=== PATIENT | female | born 1985 | race Caucasian/White ===

== ENCOUNTER 2019-04-11 18:24 | Emergency (ER) | payer MEDICAID ==
--- NOTE | 2019-04-11 18:39 | EDM.PDOC ---
ED HPI GENERAL MEDICAL PROBLEM - General Chief Complaint: Drug or Alcohol Abuse Stated Complaint: OD Time Seen by Provider: 04/11/19 18:29 Source of Information: Reports: Patient History Limitations: Reports: No Limitations - History of Present Illness INITIAL COMMENTS - FREE TEXT/NARRATIVE: This patient is a 33 year old female that presents to the ER via EMS [place]. Upon arrival, the patient is alert and oriented. EMS reports that phone call to 911 dispatched saying patient was unresponsive. EMS reports CPR was in progress by bystanders. EMS reports they found patient with good pulses. EMS reports patient lips were blue, she had periods of apnea breathing, and patient was not responsive. EMS reports that they arrived on scene at 5:45pm. EMS reports blood sugar was 214. Narcan given by EMS at 1800, with patient then becoming responsive. They report the patient was being ambu bag, until 1804. Then at 1808 when then patient breathing normal and completely alert, regained consciousness. The patient reports what she remembers is that today she felt fine, except having her chronic back pain. She reports she took 2 hydrocodones and 1 xanax earlier today. She reports she was across street at [employer] house sitting on the couch talking to her two friends about 5:30pm. She reports then the next thing she remembers is being in the back of an ambulance. The patient arrives to the ER fully alert and oriented, other than recalling recent events. Patient reports she is 6 weeks confirmed by US in [place] recently, her LMP was back in February, she thinks. Onset: Today Onset Date: 04/11/19 Duration: Other (unknown time. ) Severity: Moderate Improves with: Reports: None Worsens with: Reports: None Associated Symptoms: Reports: Nausea/Vomiting. Denies: Chest Pain, Cough, cough w sputum, Diaphoresis, Fever/Chills, Headaches, Loss of Appetite, Malaise , Seizure, Shortness of Breath, Weakness - Related Data Allergies Allergy/AdvReac Type Severity Reaction Status Date / Time Penicillins Allergy Hives Verified 04/11/19 18:37 Home Meds: Home Meds Cyclobenzaprine [Flexeril] 10 mg PO BID 01/08/14 [History] Zolpidem [Ambien] 10 mg PO BEDTIME PRN 01/08/14 [History] ALPRAZolam [Xanax] 1 mg PO QID PRN 04/11/19 [History] Gabapentin [Neurontin] 800 mg PO TID 04/11/19 [History] Hydrocodone/Acetaminophen [[place] 5-325 Tablet] 1 each PO Q4H PRN 04/11/19 [ History] Past Medical History - Past Health History Medical/Surgical History: Denies Medical/Surgical History Musculoskeletal History: Reports: Back Pain, Chronic Psychiatric History: Reports: Other (See Below) - Past Surgical History Female Surgical History: Reports: Section Social & Family History - Family History Family Medical History: Noncontributory - Tobacco Use Smoking Status *Q: Never Smoker Second Hand Smoke Exposure: No - Caffeine Use Caffeine Use: Reports: None - Recreational Drug Use Recreational Drug Use: Yes - Living Situation & Occupation Living situation: Reports: , Alone Occupation: Employed ([employer]) [facility] - Review of Systems Review Of Systems: See Below Constitutional: Reports: Diaphoresis HEENT: Reports: No Symptoms Respiratory: Reports: No Symptoms Cardiovascular: Reports: No Symptoms Endocrine: Reports: No Symptoms GI/Abdominal: Reports: No Symptoms : Reports: No Symptoms Musculoskeletal: Reports: No Symptoms Skin: Reports: No Symptoms Neurological: Reports: No Symptoms Psychiatric: Reports: No Symptoms Hematologic/Lymphatic: Reports: No Symptoms Immunologic: Reports: No Symptoms - Physical Exam Exam: See Below Exam Limited By: Other (unable to recall what happened) General Appearance: Alert, WD/WN, No Apparent Distress, Obese Eye Exam: Bilateral Eye: EOMI, Normal Inspection, PERRL Ears: Normal External Exam, Normal Canal, Hearing Grossly Normal, Normal TMs Nose: Normal Inspection, Normal Mucosa, No Blood Throat/Mouth: Normal Inspection, Normal Lips, Normal Teeth, Normal Gums, Normal Oropharynx, Normal Voice, No Airway Compromise Head Exam: Atraumatic, Normocephalic Neck: Normal Inspection, Supple, Non-Tender, Full Range of Motion Respiratory/Chest: No Respiratory Distress, Lungs Clear, Normal Breath Sounds, No Accessory Muscle Use, Chest Non-Tender Cardiovascular: Normal Peripheral Pulses, Regular Rate, Rhythm, No Edema, No Gallop, No JVD, No Murmur, No Rub GI/Abdominal: Normal Bowel Sounds, Soft, Non-Tender, No Organomegaly, No Distention, No Abnormal Bruit, No Mass, Pelvis Stable (Female) Exam: Deferred Rectal (Female) Exam: Deferred Neuro Exam (Abbreviated): Alert, Oriented, CN II-XII Intact, Normal Cognition, Normal Gait, No Motor/Sensory Deficits, Memory Loss Recent Events Back Exam: Normal Inspection, Full Range of Motion Extremities: Normal Inspection, Normal Range of Motion, Non-Tender, No Pedal Edema, Normal Capillary Refill Psychiatric: Normal Affect, Normal Mood Skin Exam: Warm, Intact, Normal Color, No Rash, Diaphoretic EKG INTERPRETATION EKG Date: 04/11/19 Time: 18:51 Rhythm: Other (Sinus Tach) Rate (Beats/Min): 102 P-Wave: Present QRS: Normal ST-T: Normal Comparison: NA - No Prior EKG Course - Vital Signs Last Recorded V/S: Last Vital Signs Temp 96.5 F 04/11/19 18:24 Pulse 113 H 04/11/19 18:24 Resp 18 04/11/19 18:24 BP 99/57 L 04/11/19 18:24 Pulse Ox 98 04/11/19 18:24 - Orders/Labs/Meds Labs: Laboratory Tests 04/11/19 04/11/19 04/11/19 Range/Units 18:40 18:40 18:40 WBC 9.2 (5.0-10.0) 10^3/uL RBC 4.44 (4.00-5.50) 10^6/uL Hgb 12.7 (12.0-16.0) g/dL Hct 38.2 (37.0-47.0) % MCV 86.0 (82.0-94.0) fL MCH 28.6 (27.0-32.0) pg MCHC 33.2 (33.0-38.0) g/dL RDW Coeff of Vahe 13.0 (11.0-15.0) % Plt Count 272 (150-400) 10^3/uL Neut % (Auto) 72.8 (35-85) % Lymph % (Auto) 19.9 (10-55) % Garrard % (Auto) 5.4 (0-16) % Eos % (Auto) 1.7 (0-5) % Baso % (Auto) 0.2 (0-3) % Neut # (Auto) 6.72 (1.80-7.00) 10^3/uL Lymph # (Auto) 1.84 (1.00-4.80) 10^3/uL Garrard # (Auto) 0.50 (0.00-0.80) 10^3/uL Eos # (Auto) 0.16 (0.00-0.45) 10^3/uL Baso # (Auto) 0.02 10^3/uL Sodium (136-145) mEq/L Potassium (3.5-5.0) mEq/L Chloride (98-106) mEq/L Carbon Dioxide (21-32) mmol/L BUN (7-18) mg/dL Creatinine (0.6-1.0) mg/dL Est Cr Clr Drug Dosing mL/min Estimated GFR (MDRD) (>=60) mL/min Glucose (75-99) mg/dL Calcium (8.4-10.1) mg/dL Total Bilirubin (0.0-1.0) mg/dL AST (15-37) U/L ALT (12-78) U/L Alkaline Phosphatase (46-116) U/L Creatine Kinase (21-215) U/L Troponin I (0.00-0.06) ng/mL Total Protein (6.4-8.2) g/dL Albumin (3.4-5.0) g/dL Urine Color Yellow (YELLOW) Urine Appearance Slightly cloudy (CLEAR) Urine pH 5.5 (4.5-8.0) Ur Specific [place] 1.015 (1.003-1.020) Urine Protein Trace H (NEGATIVE) mg/dL Urine Glucose (UA) 100 H (NEGATIVE) mg/dL Urine Ketones Negative (NEGATIVE) mg/dL Urine Occult Blood Negative (NEGATIVE) Urine Nitrite Negative (NEGATIVE) Urine Bilirubin Negative (NEGATIVE) Urine Urobilinogen 0.2 (0.2-1.0) EU/dL Ur Leukocyte Esterase Negative (NEGATIVE) Urine RBC Not seen (0-5) /HPF Urine WBC 0-5 (0-5) /HPF Ur Squamous Epith Cells Few H (NOT SEEN) /HPF Urine Bacteria Few H (NOT SEEN) /HPF Urine Mucus Occasional H (NOT SEEN) /HPF Urine HCG, Qual Positive Urine Opiates Screen (NEGATIVE) Ur Oxycodone Screen (NEGATIVE) Urine Methadone Screen (NEGATIVE) Ur Barbiturates Screen (NEGATIVE) U Tricyclic Antidepress (NEGATIVE) Ur Phencyclidine Scrn (NEGATIVE) Ur Amphetamine Screen (NEGATIVE) U Methamphetamines Scrn (NEGATIVE) Urine MDMA Screen (NEGATIVE) U Benzodiazepines Scrn (NEGATIVE) Urine Cocaine Screen (NEGATIVE) U Marijuana (THC) Screen (NEGATIVE) Ethyl Alcohol (0-3) mg/dL 04/11/19 04/11/19 Range/Units 18:40 18:40 WBC (5.0-10.0) 10^3/uL RBC (4.00-5.50) 10^6/uL Hgb (12.0-16.0) g/dL Hct (37.0-47.0) % MCV (82.0-94.0) fL MCH (27.0-32.0) pg MCHC (33.0-38.0) g/dL RDW Coeff of Vahe (11.0-15.0) % Plt Count (150-400) 10^3/uL Neut % (Auto) (35-85) % Lymph % (Auto) (10-55) % [place]ard % (Auto) (0-16) % Eos % (Auto) (0-5) % Baso % (Auto) (0-3) % Neut # (Auto) (1.80-7.00) 10^3/uL Lymph # (Auto) (1.00-4.80) 10^3/uL [place]ard # (Auto) (0.00-0.80) 10^3/uL Eos # (Auto) (0.00-0.45) 10^3/uL Baso # (Auto) 10^3/uL Sodium 138 (136-145) mEq/L Potassium 4.1 (3.5-5.0) mEq/L Chloride 103 (98-106) mEq/L Carbon Dioxide 25 (21-32) mmol/L BUN 10 (7-18) mg/dL Creatinine 0.8 (0.6-1.0) mg/dL Est Cr Clr Drug Dosing 92.76 mL/min Estimated GFR (MDRD) > 60 (>=60) mL/min Glucose 202 H (75-99) mg/dL Calcium 8.5 (8.4-10.1) mg/dL Total Bilirubin 0.2 (0.0-1.0) mg/dL AST 17 (15-37) U/L ALT 19 (12-78) U/L Alkaline Phosphatase 74 (46-116) U/L Creatine Kinase 53 (21-215) U/L Troponin I < 0.017 (0.00-0.06) ng/mL Total Protein 7.3 (6.4-8.2) g/dL Albumin 3.7 (3.4-5.0) g/dL Urine Color (YELLOW) Urine Appearance (CLEAR) Urine pH (4.5-8.0) Ur Specific [place] (1.003-1.020) Urine Protein (NEGATIVE) mg/dL Urine Glucose (UA) (NEGATIVE) mg/dL Urine Ketones (NEGATIVE) mg/dL Urine Occult Blood (NEGATIVE) Urine Nitrite (NEGATIVE) Urine Bilirubin (NEGATIVE) Urine Urobilinogen (0.2-1.0) EU/dL Ur Leukocyte Esterase (NEGATIVE) Urine RBC (0-5) /HPF Urine WBC (0-5) /HPF Ur Squamous Epith Cells (NOT SEEN) /HPF Urine Bacteria (NOT SEEN) /HPF Urine Mucus (NOT SEEN) /HPF Urine HCG, Qual Urine Opiates Screen Negative (NEGATIVE) Ur Oxycodone Screen Positive H (NEGATIVE) Urine Methadone Screen Negative (NEGATIVE) Ur Barbiturates Screen Negative (NEGATIVE) U Tricyclic Antidepress Positive H (NEGATIVE) Ur Phencyclidine Scrn Negative (NEGATIVE) Ur Amphetamine Screen Negative (NEGATIVE) U Methamphetamines Scrn Negative (NEGATIVE) Urine MDMA Screen Negative (NEGATIVE) U Benzodiazepines Scrn Positive H (NEGATIVE) Urine Cocaine Screen Negative (NEGATIVE) U Marijuana (THC) Screen Negative (NEGATIVE) Ethyl Alcohol 3 (0-3) mg/dL - Re-Assessments/Exams Free Text/Narrative Re-Assessment/Exam: 04/11/19 20:53 I did not do a head ct due to patient being fully alert and oriented on arrival without any neurological findings on exam. Also, did not do a CXR due to patient not having Chest pain or dyspnea. The patient is also , so avoided radiation exposures. I then called and spoke to [facility] physician about the patient after obtaining all results. He said could discharge the patient home, sounds like OD with narcan that reversed patient condition. Patient was not post ictal on arrival or in ambulance after narcan was given per EMS report. Patient was not incontinent of urine or stool. The patient during ER stay has had no complaints. She reports that she may not have been diaphoretic on arrival, because her friends said they actually splashed a big cup of water on her to try and wake her. The patient is being discharged home. She reports she hermann followup with her PCP. She told me that her drug screen could be positive for oxycodone vs opiates because she thinks maybe she was switched to oxycodone. She reports that she normally takes 1, sometimes 2 of the hydrocodones, but maybe she actually took 2 of the oxycodones instead and that was more powerful and made her have that episode. She reports she def did not intentionally OD herself. Departure - Departure Time of Disposition: 21:11 Disposition: Home, Self-Care 01 Condition: Good Clinical Impression: Overdose Qualifiers: Encounter type: initial encounter Injury intent: accidental or unintentional Qualified Code(s): T50.901A - Poisoning by unspecified drugs, medicaments and biological substances, accidental (unintentional), initial encounter - Discharge Information *PRESCRIPTION DRUG MONITORING PROGRAM REVIEWED*: No *COPY OF PRESCRIPTION DRUG MONITORING REPORT IN PATIENT SEDRICK: No Instructions: Drug Overdose Referrals: Nick Carrillo MD [Primary Care Provider] - Forms: ED Department Discharge Additional Instructions: Followup with your primary care provider Return to the ER for worsening of condition or any emergent concerns Take meds as prescribed - Assessment/Plan Plan: PLEASE SEE RN NOTE FOR PFSH.
[2019-04-11 19:00] LABS: CHLORIDE,CL 103 mEq/L (98-106); SODIUM,NA 138 mEq/L (136-145)
== END 2019-04-11 21:30 | disposition home or self-care (01) ==
LOC: CC.ED 18:24
DX: O9A.211 Injury, poisoning and certain other consequences of external causes complicating pregnancy, first trimester (principal); T40.2X1A Poisoning by other opioids, accidental (unintentional), initial encounter; T42.4X1A Poisoning by benzodiazepines, accidental (unintentional), initial encounter; Z88.0 Allergy status to penicillin; Z3A.01 Less than 8 weeks gestation of pregnancy; Y92.009 Unspecified place in unspecified non-institutional (private) residence as the place of occurrence of the external cause
CPT/HCPCS: 36415; 80053; 80305-QW; 81001; 81025; 82550; 84484; 85025; 93005; 99284-25; G0480

== ENCOUNTER 2020-05-21 15:17 | Emergency (ER) | payer MEDICAID ==
--- NOTE | 2020-05-21 15:51 | EDM.PDOC ---
ED HPI GENERAL MEDICAL PROBLEM - General Chief Complaint: Upper Extremity Injury/Pain Stated Complaint: "I think I broke my hand" Time Seen by Provider: 05/21/20 15:23 Source of Information: Reports: Patient History Limitations: Reports: No Limitations - History of Present Illness INITIAL COMMENTS - FREE TEXT/NARRATIVE: This patient is a 34 year old female that presents to the ER. Patient reports that she was walking down a step last night and tripped and landed on her left hand. Patient then she landed on it with her body. Patient denies hitting head or any other injuries other than left hand pain, swelling, bruising. Onset Date: 05/20/20 Location: Reports: Upper Extremity, Left Quality: Reports: Ache Severity: Mild Improves with: Reports: Immobilization Worsens with: Reports: Movement Associated Symptoms: Reports: No Other Symptoms Left Hand Pain Score (Numeric/FACES): 7 - Related Data Allergies Allergy/AdvReac Type Severity Reaction Status Date / Time Penicillins Allergy Hives Verified 05/21/20 15:24 Home Meds: Home Meds Cyclobenzaprine [Flexeril] 10 mg PO BID 01/08/14 [History] Zolpidem [Ambien] 10 mg PO BEDTIME PRN 01/08/14 [History] ALPRAZolam [Xanax] 1 mg PO QID PRN 04/11/19 [History] Gabapentin [Neurontin] 800 mg PO TID 04/11/19 [History] Hydrocodone/Acetaminophen [[place] 5-325 Tablet] 1 each PO Q4H PRN 04/11/19 [History] Mirtazapine 30 mg PO BEDTIME 05/21/20 [History] Past Medical History - Past Health History Medical/Surgical History: Denies Medical/Surgical History Musculoskeletal History: Reports: Back Pain, Chronic Psychiatric History: Reports: Other (See Below) - Past Surgical History GI Surgical History: Reports: Hernia Repair/Other Female Surgical History: Reports: Section Social & Family History - Family History Family Medical History: No Pertinent Family History - Tobacco Use Tobacco Use Status *Q: Current Every Day Tobacco User Years of Tobacco use: 10 Packs/Tins Daily: 0.5 - Caffeine Use Caffeine Use: Reports: Coffee, Soda - Recreational Drug Use Recreational Drug Use: No - Living Situation & Occupation Living situation: Reports: , Alone Occupation: Employed ([employer]) Review of Systems - Review of Systems Review Of Systems: See Below Constitutional: Reports: No Symptoms Eyes: Reports: No Symptoms Ears: Reports: No Symptoms Nose: Reports: No Symptoms Mouth/Throat: Reports: No Symptoms Respiratory: Reports: No Symptoms Cardiovascular: Reports: No Symptoms GI/Abdominal: Reports: No Symptoms Genitourinary: Reports: No Symptoms Musculoskeletal: Reports: Hand Pain (left hand pain) Skin: Reports: Bruising (left hand) Neurological: Reports: No Symptoms Psychiatric: Reports: No Symptoms ED EXAM, GENERAL - Physical Exam Exam: See Below Exam Limited By: No Limitations General Appearance: Alert, WD/WN, No Apparent Distress Respiratory/Chest: No Respiratory Distress, Lungs Clear, Normal Breath Sounds, No Accessory Muscle Use Cardiovascular: Normal Peripheral Pulses, Regular Rate, Rhythm Peripheral Pulses: 2+: Radial (L), Radial (R) Extremities: Other (Left hand palm side at 4th, 5th metacarpal pain, tenderness, swelling, eccyhmosis. ROM intact, but with pain. Pulses +2, cap refill < 2 sec. Sensory/motor intact. Neurovascular intact. ) Neurological: Alert, Oriented Psychiatric: Normal Affect, Normal Mood Skin Exam: Warm, Dry, Intact, No Rash, Ecchymosis (left hand) ED TRAUMA EXTREMITY PROCEDURES - Splinting Left Upper Extremity Splint Site: left hand Pre-Procedure NV Status: Normal Post-Procedure NV Status: Normal Splint Material: Fiberglass Splint Design: Boxer Splint Applied & Form Fitted By: Provider Provider Post-Splint Application NV Check: NV Status Normal, Good Position Complications: No Course - Vital Signs Last Recorded V/S: Last Vital Signs Temp 97.9 F 05/21/20 15:22 Pulse 94 05/21/20 15:22 Resp 16 05/21/20 15:22 BP 132/92 H 05/21/20 15:22 Pulse Ox 100 05/21/20 15:22 - Orders/Labs/Meds Orders: Active Orders 24 hr Category Date Time Status Hand Comp Min 3V Lt [CR] Stat Exams 05/21/20 15:27 Taken - Radiology Interpretation Free Text/Narrative:: left hand xray: no fracture, no dislocation. no fb. Departure - Departure Time of Disposition: 15:48 Disposition: Home, Self-Care 01 Condition: Good Clinical Impression: Contusion of left hand Qualifiers: Encounter type: initial encounter Qualified Code(s): S60.222A - Contusion of left hand, initial encounter Sprain of left hand Qualifiers: Encounter type: initial encounter Qualified Code(s): S63.92XA - Sprain of unspecified part of left wrist and hand, initial encounter - Discharge Information *PRESCRIPTION DRUG MONITORING PROGRAM REVIEWED*: Not Applicable *COPY OF PRESCRIPTION DRUG MONITORING REPORT IN PATIENT SEDRICK: Not Applicable Instructions: Hand Contusion, [id number], How to Use Cold Therapy Forms: ED Department Discharge Additional Instructions: Followup with primary care provider for evaluation of hand and possible repeat xray in -10 if still having pain Return to the ER for worsening of condition or any emergent concerns Rest Ice Elevate Arm sling as needed Motrin for pain and swelling If hand becomes painful, numb, tingling; raise arm above heart. If continues, remove cast. Sepsis Event Note (ED) - Evaluation Sepsis Screening Result: No Definite Risk - Focused Exam Vital Signs: Vital Signs Temp Pulse Resp BP Pulse Ox 05/21/20 15:22 97.9 F 94 16 132/92 H 100 - My Orders Last 24 Hours: My Active Orders 05/21/20 15:27 Hand Comp Min 3V Lt [CR] Stat - Assessment/Plan Last 24 Hours: My Active Orders 05/21/20 15:27 Hand Comp Min 3V Lt [CR] Stat Plan: PLEASE SEE RN NOTE FOR PFSH
== END 2020-05-21 15:54 | disposition home or self-care (01) ==
LOC: CC.ED 15:17
DX: S63.92XA Sprain of unspecified part of left wrist and hand, initial encounter (principal); F17.210 Nicotine dependence, cigarettes, uncomplicated; Z88.0 Allergy status to penicillin; W10.9XXA Fall (on) (from) unspecified stairs and steps, initial encounter; Y93.01 Activity, walking, marching and hiking
CPT/HCPCS: 29125; 73130-LT; 99283-25

== ENCOUNTER 2020-09-30 00:39 | Emergency (ER) | payer MEDICAID ==
--- NOTE | 2020-09-30 01:15 | EDM.PDOC ---
ED HPI GENERAL MEDICAL PROBLEM - General Chief Complaint: Lower Extremity Injury/Pain Stated Complaint: ankle injury Time Seen by Provider: 09/30/20 01:06 - History of Present Illness INITIAL COMMENTS - FREE TEXT/NARRATIVE: Ирина is a yo female who presents to the ED with c/o left lateral ankle pain. She reports she jumped off her dryer and landed wrong on her ankle. Reports instant pain. Does have mild swelling to lateral aspect of left ankle. Did take some Aleve prior to coming in. Reports pain extends up the back of her leg. Denies any other injury. 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 Left Ankle Pain Score (Numeric/FACES): 8 - Related Data Allergies Allergy/AdvReac Type Severity Reaction Status Date / Time Penicillins Allergy Hives Verified 09/30/20 00:46 Home Meds: Home Meds Cyclobenzaprine [Flexeril] 10 mg PO TID PRN 01/08/14 [History] Zolpidem [Ambien] 10 mg PO BEDTIME PRN 01/08/14 [History] ALPRAZolam [Xanax] 1 mg PO QID PRN 04/11/19 [History] Gabapentin [Neurontin] 800 mg PO TID 04/11/19 [History] Hydrocodone/Acetaminophen [[place] 5-325 Tablet] 1 each PO Q4H PRN 04/11/19 [History] Mirtazapine 30 mg PO BEDTIME 05/21/20 [History] Past Medical History - Past Health History Medical/Surgical History: Denies Medical/Surgical History Musculoskeletal History: Reports: Back Pain, Chronic, Osteoarthritis Neurological History: Reports: Neuropathy, Peripheral Psychiatric History: Reports: Anxiety, Depression - Past Surgical History GI Surgical History: Reports: Hernia Repair/Other Female Surgical History: Reports: Section, Tubal Ligation Social & Family History - Family History Family Medical History: No Pertinent Family History - Tobacco Use Tobacco Use Status *Q: Current Every Day Tobacco User Years of Tobacco use: 23 Packs/Tins Daily: 0.5 - Caffeine Use Caffeine Use: Reports: Coffee, Soda - Living Situation & Occupation Living situation: Reports: , Alone Occupation: Employed ([employer]) Review of Systems - Review of Systems Review Of Systems: Comprehensive ROS is negative, except as noted in HPI. ED EXAM, GENERAL - Physical Exam Exam: See Below Exam Limited By: No Limitations General Appearance: Alert, WD/WN, No Apparent Distress Peripheral Pulses: 2+: Posterior Tibial (L), Dorsalis Pedis (L) Extremities: Normal Range of Motion, Normal Capillary Refill, Other (mild swelling noted to latearl aspect of left ankle, small area of bruising, tender to touch lateral aspect of left ankle ). No: Increased Warmth, Redness Psychiatric: Anxious Course - Vital Signs Last Recorded V/S: Last Vital Signs Temp 98.9 F 09/30/20 00:40 Pulse 102 H 09/30/20 00:40 Resp 16 09/30/20 00:40 BP 150/82 H 09/30/20 00:40 Pulse Ox 98 09/30/20 00:40 - Orders/Labs/Meds Orders: Active Orders 24 hr Category Date Time Status Ankle Min 3V Lt [CR] Stat Exams 09/30/20 00:45 Taken Departure - Departure Time of Disposition: 01:12 Disposition: Home, Self-Care 01 Condition: Good Clinical Impression: Left ankle sprain Qualifiers: Encounter type: initial encounter Involved ligament of ankle: unspecified ligament Qualified Code(s): S93.402A - Sprain of unspecified ligament of left ankle, initial encounter - Discharge Information *PRESCRIPTION DRUG MONITORING PROGRAM REVIEWED*: Not Applicable *COPY OF PRESCRIPTION DRUG MONITORING REPORT IN PATIENT SEDRICK: Not Applicable Referrals: PCP,None [Primary Care Provider] - Forms: ED Department Discharge Additional Instructions: - RICE therapies until pain improves (rest, ice, elevate and compression) - Aleve or ibuprofen as needed for pain/swelling - Weight bearing as tolerated - May use Cam boot as needed for comfort - Follow up for recheck if symptoms worsen or do not improve - Return to ED for emergent needs Sepsis Event Note (ED) - Evaluation Sepsis Screening Result: No Definite Risk - Focused Exam Vital Signs: Vital Signs Temp Pulse Resp BP Pulse Ox 09/30/20 00:40 98.9 F 102 H 16 150/82 H 98 - Problem List & Annotations (1) Left ankle sprain SNOMED Code(s): 65301422, [id number] Code(s): S93.402A - SPRAIN OF UNSPECIFIED LIGAMENT OF LEFT ANKLE, INIT ENCNTR Status: Acute Qualifiers: Encounter type: initial encounter Involved ligament of ankle: unspecified ligament Qualified Code(s): S93.402A - Sprain of unspecified ligament of left ankle, initial encounter - My Orders Last 24 Hours: My Active Orders 09/30/20 00:45 Ankle Min 3V Lt [CR] Stat - Assessment/Plan Last 24 Hours: My Active Orders 09/30/20 00:45 Ankle Min 3V Lt [CR] Stat Assessment:: Left ankle sprain Plan: Xray negative per my review. Awaiting final radiology report. Recommend RICE therapies. Tylenol or ibuprofen as needed. Follow up if symptoms worsen or do not improve.
== END 2020-09-30 01:20 | disposition home or self-care (01) ==
LOC: CC.ED 00:39
DX: S93.402A Sprain of unspecified ligament of left ankle, initial encounter (principal); Z72.0 Tobacco use; Z88.0 Allergy status to penicillin; X50.1XXA Overexertion from prolonged static or awkward postures, initial encounter; Y93.39 Activity, other involving climbing, rappelling and jumping off
CPT/HCPCS: 73610-LT; 99283-25

== ENCOUNTER 2021-02-27 20:21 | Emergency (ER) | payer MEDICAID ==
--- NOTE | 2021-02-27 20:48 | EDM.PDOC ---
ED HPI GENERAL MEDICAL PROBLEM - General Chief Complaint: General Stated Complaint: Arm Hematoma Time Seen by Provider: 02/27/21 20:30 Source of Information: Reports: Patient History Limitations: Reports: No Limitations - History of Present Illness INITIAL COMMENTS - FREE TEXT/NARRATIVE: Ирина is a 35 year old female who presents to ER with complaints of a concerning bruise on her right arm. States her arm feels numb if she holds it up and is relieves if she applies pressure to her right axilla. patient notes she does bruise easily but has no recollection on how she obtained the one on her arm. Noted it to appear like a welt on the top and bruised elsewhere. States has tried hard to get herself off her medications as was on hydrocodone, gabapentin, mirtazapine, flexeril and xanax. Does admit that she lost her Xanax at home somewhere and does feel very anxious tonight with all "these weird things going on". Denies shortness of breath, edema in her legs, or chest discomfort. Admits to occasional nose bleeds. No blood in her stools or diarrhea. Onset: Gradual Duration: Day(s): Location: Reports: Upper Extremity, Right Quality: Reports: Ache, Throbbing Severity: Mild Improves with: Reports: Rest Worsens with: Reports: Movement Associated Symptoms: Denies: Confusion, Chest Pain, Cough, Fever/Chills, Loss of Appetite, Nausea/Vomiting, Shortness of Breath - Related Data Allergies Allergy/AdvReac Type Severity Reaction Status Date / Time Penicillins Allergy Hives Verified 02/27/21 20:27 Home Meds: Home Meds Cyclobenzaprine [Flexeril] 10 mg PO TID PRN 01/08/14 [History] Zolpidem [Ambien] 10 mg PO BEDTIME PRN 01/08/14 [History] ALPRAZolam [Xanax] 1 mg PO QID PRN 04/11/19 [History] Gabapentin [Neurontin] 800 mg PO TID 04/11/19 [History] Mirtazapine 30 mg PO BEDTIME 05/21/20 [History] Past Medical History - Past Health History Medical/Surgical History: Denies Medical/Surgical History Musculoskeletal History: Reports: Back Pain, Chronic, Osteoarthritis Neurological History: Reports: Neuropathy, Peripheral Psychiatric History: Reports: Anxiety, Depression - Past Surgical History GI Surgical History: Reports: Hernia Repair/Other Female Surgical History: Reports: Section, Tubal Ligation Social & Family History - Family History Family Medical History: No Pertinent Family History - Tobacco Use Tobacco Use Status *Q: Never Tobacco User Second Hand Smoke Exposure: No - Caffeine Use Caffeine Use: Reports: None - Recreational Drug Use Recreational Drug Use: No - Living Situation & Occupation Living situation: Reports: , Alone Occupation: Employed ([employer]) ED ROS GENERAL - Review of Systems Review Of Systems: See Below Constitutional: Denies: Fever, Chills, Malaise, Weakness, Fatigue HEENT: Reports: Nosebleed. Denies: Ear Pain, Sinus Problem, Throat Pain, Vertigo Respiratory: Denies: Shortness of Breath, Cough Cardiovascular: Denies: Chest Pain, Edema, Lightheadedness Endocrine: Denies: Fatigue GI/Abdominal: Denies: Abdominal Pain, Black Stool, Bloody Stool, Nausea, Vomiting : Reports: No Symptoms Musculoskeletal: Reports: Arm Pain. Denies: Neck Pain, Shoulder Pain Skin: Reports: Bruising Neurological: Reports: No Symptoms ED EXAM, GENERAL - Physical Exam Exam: See Below Exam Limited By: No Limitations General Appearance: Alert, WD/WN, No Apparent Distress Ears: Normal External Exam, Normal TMs Nose: Normal Inspection, Normal Mucosa, No Blood Throat/Mouth: Normal Inspection, Normal Oropharynx Head: Normocephalic Neck: Normal Inspection, Supple, Non-Tender Respiratory/Chest: No Respiratory Distress, Lungs Clear, Normal Breath Sounds Cardiovascular: Tachycardia GI/Abdominal: Normal Bowel Sounds, Soft, Non-Tender Back Exam: Normal Inspection, Full Range of Motion Extremities: Normal Inspection, Other (strengths are equal) Neurological: Alert, Oriented. No: No Motor/Sensory Deficits Skin Exam: Warm, Dry, Other (has large hematoma to right upper arm. Multiple bruises on her arms and legs. ) Course - Vital Signs Last Recorded V/S: Last Vital Signs Temp 96.7 F L 02/27/21 20:33 Pulse 111 H 02/27/21 20:33 Resp 18 02/27/21 20:33 BP 97/62 02/27/21 20:33 Pulse Ox 98 02/27/21 20:33 - Orders/Labs/Meds Labs: Laboratory Tests 02/27/21 02/27/21 Range/Units 20:49 20:49 WBC 11.1 H (4.0-11.0) 10^3/uL RBC 4.65 (4.00-5.50) x10^6/uL Hgb 13.2 (12.0-16.0) g/dL Hct 40.9 (37.0-47.0) % MCV 88.0 (83.0-97.0) fL MCH 28.4 (27.0-32.0) pg MCHC 32.3 (32.0-36.0) g/dL RDW Coeff of [place] 14.4 (11.0-15.0) % Plt Count 369 (150-400) 10^3/uL Immature Gran % (Auto) 0.3 (0.0-4.9) % Neut % (Auto) 65.8 (41-71) % Lymph % (Auto) 25.0 (24-44) % [place] % (Auto) 6.4 (0-10) % Eos % (Auto) 2.0 (0-6) % Baso % (Auto) 0.5 (0-1) % Neut # (Auto) 7.32 (1.80-8.00) x10^3/uL Lymph # (Auto) 2.78 (0.60-5.00) 10^3/uL [place] # (Auto) 0.71 (0.00-1.50) 10^3/uL Eos # (Auto) 0.22 (0.00-1.50) 10^3/uL Baso # (Auto) 0.06 (0.00-0.50) 10^3/uL Immature Gran # (Auto) 0.03 (0.00-0.49) 10^3/uL Sodium 144 (136-145) mEq/L Potassium 3.8 (3.5-5.0) mEq/L Chloride 104 (98-106) mEq/L Carbon Dioxide 28 (21-32) mmol/L BUN 16 D (7-18) mg/dL Creatinine 0.9 (0.6-1.0) mg/dL Est Cr Clr Drug Dosing 80.90 mL/min Estimated GFR (MDRD) > 60 (>=60) mL/min Glucose 117 H D (75-99) mg/dL Calcium 9.0 (8.4-10.1) mg/dL - Re-Assessments/Exams Free Text/Narrative Re-Assessment/Exam: 02/27/21 21:05 Patient asked about any pattern of abuse, denies. Lab work is all unremarkable. Reassured patient. Does have flexeril at home that may help with muscle spasms which could likely cause the tingling or numbness in her arm when she raises it. Can apply ice or heat. Departure - Departure Time of Disposition: 21:07 Disposition: Home, Self-Care 01 Condition: Good Clinical Impression: Bruising - Discharge Information *PRESCRIPTION DRUG MONITORING PROGRAM REVIEWED*: No *COPY OF PRESCRIPTION DRUG MONITORING REPORT IN PATIENT SEDRICK: No Instructions: Contusion, [id number] Referrals: PCP,None [Primary Care Provider] - Forms: ED Department Discharge Additional Instructions: 1. Push fluids 2. Flexeril 10 mg every 8 hours 3. ice or heat to shoulder 4. Ice to contusion to arm 5. Follow up with PCP for persisting concerns. Sepsis Event Note (ED) - Evaluation Sepsis Screening Result: No Definite Risk - Focused Exam Vital Signs: Vital Signs Temp Pulse Resp BP Pulse Ox 02/27/21 20:33 96.7 F L 111 H 18 97/62 98 02/27/21 20:29 96.7 F L 111 H 18 97/62 98
[2021-02-27 20:58] LABS: CHLORIDE,CL 104 mEq/L (98-106); SODIUM,NA 144 mEq/L (136-145)
== END 2021-02-27 21:15 | disposition home or self-care (01) ==
LOC: CC.ED 20:21
DX: M79.81 Nontraumatic hematoma of soft tissue (principal); M19.90 Unspecified osteoarthritis, unspecified site; Z88.0 Allergy status to penicillin; Z79.899 Other long term (current) drug therapy
CPT/HCPCS: 36415; 80048; 85025; 99283

== ENCOUNTER 2021-08-20 12:18 | Emergency (ER) | payer BC, MEDICAID, OTHER ==
[2021-08-20 13:01] LABS: CHLORIDE,CL 101 mEq/L (98-106); SODIUM,NA 139 mEq/L (136-145)
[2021-08-20] MEDS: Ketorolac 30 MG/ML SDV IVPUSH ONE (13:22)
[2021-08-20] MEDS: Famotidine 20 MG/2 ML SDV IVPUSH ONE (13:22)
== END 2021-08-20 13:39 | disposition home or self-care (01) ==
LOC: CC.ED 12:18
DX: R10.12 Left upper quadrant pain (principal); G89.29 Other chronic pain; S30.1XXA Contusion of abdominal wall, initial encounter; F17.210 Nicotine dependence, cigarettes, uncomplicated; Z88.0 Allergy status to penicillin; Z88.8 Allergy status to other drugs, medicaments and biological substances; Z79.899 Other long term (current) drug therapy
CPT/HCPCS: 36415; 80053; 82150; 83690; 85025; 86140; 96374; 96375; 99284-25; J1885; J3490

== ENCOUNTER 2022-12-21 22:30 | Emergency (ER) | payer MEDICAID ==
[2022-12-21 23:19] LABS: BASOPHILS ABSOLUTE AUTO 0.02 10^3/uL (0.00-0.50); BASOPHILS PERCENT AUTO 0.2 % (0-1); EOSINOPHILS ABSOLUTE AUTO 1.42 10^3/uL (0.00-1.50); HEMATOCRIT 40.6 % (37.0-47.0); HEMOGLOBIN 13.4 g/dL (12.0-16.0); IMMATURE GRAN ABSOLUTE AUTO 0.07 10^3/uL (0.00-0.49); IMMATURE GRAN PERCENT AUTO 0.5 % (0.0-4.9); LYMPHOCYTES ABSOLUTE AUTO 1.82 10^3/uL (0.60-5.00); LYMPHOCYTES PERCENT AUTO 14.1 % (24-44); MEAN CORPUSCULAR HEMOGLOBIN 30.8 pg (27.0-32.0); MEAN CORPUSCULAR VOLUME 93.3 fL (83.0-97.0); MONOCYTES ABSOLUTE AUTO 0.52 10^3/uL (0.00-1.50); NEUTROPHILS ABSOLUTE AUTO 9.04 x10^3/uL (1.80-8.00); NEUTROPHILS PERCENT AUTO 70.2 % (41-71); PLATELET COUNT,PLT 265 10^3/uL (150-400); RED BLOOD CELL COUNT 4.35 x10^6/uL (4.00-5.50); WHITE BLOOD CELL COUNT,WBC 12.9 10^3/uL (4.0-11.0)
[2022-12-21] MEDS: Sodium Chloride 0.9% 1,000 ML IV ONE (23:30)
[2022-12-21] MEDS: Ondansetron 4 MG/2 ML SDV IVPUSH STA (23:30)
[2022-12-21] MEDS: Morphine 2 MG/ML SYRINGE IVPUSH ONE (23:30)
[2022-12-21 23:33] LABS: ALBUMIN 3.5 g/dL (3.4-5.0); BILIRUBIN TOTAL 0.5 mg/dL (0.0-1.0); CALCIUM 9.2 mg/dL (8.4-10.1); EST CRCL DRUG DOSING (CG) 72.11 mL/min; MAGNESIUM 1.7 mg/dL (1.8-2.4); POTASSIUM,K 4.1 mEq/L (3.5-5.0); PROTEIN TOTAL,TP 7.2 g/dL (6.4-8.2)
[2022-12-22 00:06] LABS: APPEARANCE,URINE SLIGHTLY CLOUDY (CLEAR); BILIRUBIN,URINE NEGATIVE (NEGATIVE); COLOR,URINE YELLOW (YELLOW); GLUCOSE,URINE NEGATIVE (NEGATIVE); KETONES,URINE NEGATIVE (NEGATIVE); LEUKOCYTE ESTERASE,URINE SMALL (NEGATIVE); NITRITE,URINE POSITIVE (NEGATIVE); OCCULT BLOOD,URINE TRACE-INTACT (NEGATIVE); PH,URINE 6.5 (4.5-8.0); PROTEIN,URINE NEGATIVE (NEGATIVE); UROBILINOGEN,URINE 0.2 EU/dL (0.2-1.0)
[2022-12-22 00:21] LABS: BACTERIA,URINE FEW /HPF (NOT SEEN); EPITHELIAL CELLS,URINE FEW /HPF (NOT SEEN); MUCUS,URINE FEW /HPF (NOT SEEN); RBC,URINE 0-5 /HPF (0-5)
[2022-12-22] MEDS: Iopamidol 755 Mg/ML 100 ML Bottle IVPUSH ONE (00:30)
[2022-12-22] MEDS: cefTRIAXone 1 GM Vial IVPUSH ONE (01:23)
[2022-12-22] MEDS: Piperacillin/Tazobactam 4.5 GM in Sodium Chloride 0.9% 100 ML IV ONE (01:23)
[2022-12-22] MEDS: HYDROmorphone 1 MG/ML Syringe IVPUSH ONE (01:25)
[2022-12-22] MEDS: Ondansetron 4 MG/2 ML SDV IVPUSH STA (01:26)
== END 2022-12-22 02:32 ==
LOC: CC.ED 22:30
DX: K35.80 Unspecified acute appendicitis (principal); N39.0 Urinary tract infection, site not specified; R31.9 Hematuria, unspecified; Z88.0 Allergy status to penicillin; Z88.6 Allergy status to analgesic agent
CPT/HCPCS: 36415; 74177; 80053; 81001; 81025; 83690; 83735; 85025; 87086; 87088; 87186; 96361; 96365; 96375; 96376; 99284; 99285-25; J0696; J1170; J2270; J2405; J2543; J3490; J7030; Q9967

== ENCOUNTER 2023-05-22 06:17 | Emergency (ER) | payer MEDICAID ==
[2023-05-22] MEDS ORDERED: Tetracaine HCl/PF 0.5% 4 ML Bottle EYEBOTH STA (06:32)
[2023-05-22] MEDS ORDERED: Fluorescein 1 MG Ophth Strip EYEBOTH ONE (06:38)
[2023-05-22] MEDS ORDERED: Distilled Water Ophth Irrig Soln 120 ML Bottle EYEBOTH ONE (06:46)
[2023-05-22] MEDS ORDERED: Dexamethasone/Tobramycin 0.1-0.3% Ophth Oint 3.5 GM Tube EYEBOTH ONE (06:46)
[2023-05-22] MEDS ORDERED: Dexamethasone/Tobramycin 0.1-0.3% Ophth Susp 2.5 ML Bottle EYEBOTH SCH (07:00)
== END 2023-05-22 06:59 | disposition home or self-care (01) ==
LOC: CC.ED 06:17
DX: S05.01XA Injury of conjunctiva and corneal abrasion without foreign body, right eye, initial encounter (principal); S05.02XA Injury of conjunctiva and corneal abrasion without foreign body, left eye, initial encounter; F17.210 Nicotine dependence, cigarettes, uncomplicated; Z79.899 Other long term (current) drug therapy; Z88.0 Allergy status to penicillin; Z88.8 Allergy status to other drugs, medicaments and biological substances
CPT/HCPCS: 99283

== ENCOUNTER 2025-01-10 19:45 | Emergency (ER) | payer MEDICAID ==
[2025-01-10 20:17] LABS: BASOPHILS ABSOLUTE AUTO 0.04 10^3/uL (0.00-0.50); BASOPHILS PERCENT AUTO 0.5 % (0-1); EOSINOPHILS ABSOLUTE AUTO 0.08 10^3/uL (0.00-1.50); EOSINOPHILS PERCENT AUTO 1.1 % (0-6); IMMATURE GRAN ABSOLUTE AUTO 0.06 10^3/uL (0.00-0.49); IMMATURE GRAN PERCENT AUTO 0.8 % (0.0-4.9); LYMPHOCYTES ABSOLUTE AUTO 1.24 10^3/uL (0.60-5.00); LYMPHOCYTES PERCENT AUTO 16.8 % (24-44); MONOCYTES ABSOLUTE AUTO 0.33 10^3/uL (0.00-1.50); MONOCYTES PERCENT AUTO 4.5 % (0-10); NEUTROPHILS ABSOLUTE AUTO 5.61 x10^3/uL (1.80-8.00); NEUTROPHILS PERCENT AUTO 76.3 % (41-71); PLATELET COUNT,PLT 206 10^3/uL (150-400); RED BLOOD CELL COUNT 4.83 x10^6/uL (4.00-5.50); WHITE BLOOD CELL COUNT,WBC 7.4 10^3/uL (4.0-11.0)
[2025-01-10 20:35] LABS: BILIRUBIN TOTAL 0.5 mg/dL (0.0-1.0); BLOOD UREA NITROGEN,BUN 9 mg/dL (7-18); CARBON DIOXIDE,CO2 21 mmol/L (21-32); CHLORIDE,CL 96 mEq/L (98-106); CREATININE 1.0 mg/dL (0.6-1.0); ETHANOL BLOOD MEDICAL 12 mg/dL (0-3); POTASSIUM,K 3.9 mEq/L (3.5-5.0); PROTEIN TOTAL,TP 7.8 g/dL (6.4-8.2); SODIUM,NA 132 mEq/L (136-145)
[2025-01-10 20:36] LABS: ALANINE AMINOTRANSFERASE,ALT 343 U/L (12-78); ASPARTATE AMNIOTRANSFERASE,AST 351 U/L (15-37); ESTIMATED GFR 73 mL/min (>=60); GLUCOSE RANDOM 364 mg/dL (75-99)
[2025-01-10] MEDS: Ondansetron 4 MG/2 ML SDV IVPUSH STA (20:37)
[2025-01-10] MEDS: Lactated Ringers 1,000 ML IV ONE (20:37)
[2025-01-10] MEDS: Iopamidol 755 Mg/ML 100 ML Bottle IVPUSH ONE (20:42)
[2025-01-10 21:12] LABS: APPEARANCE,URINE CLEAR (CLEAR); GLUCOSE,URINE 250 mg/dL (NEGATIVE); OCCULT BLOOD,URINE MODERATE (NEGATIVE)
[2025-01-10 21:24] LABS: AMPHETAMINES,URINE POSITIVE (NEGATIVE); BARBITURATES,URINE NEGATIVE (NEGATIVE); MDMA (ECSTASY), URINE NEGATIVE (NEGATIVE); METHAMPHETAMINES,URINE POSITIVE (NEGATIVE); OPIATES,URINE NEGATIVE (NEGATIVE); OXYCODONE,URINE POSITIVE (NEGATIVE); PHENCYCLIDINE,URINE NEGATIVE (NEGATIVE); TCA,URINE NEGATIVE (NEGATIVE)
[2025-01-10] MEDS: Orphenadrine 60 MG/2 ML Inj IV ONE (21:29)
[2025-01-10] MEDS ORDERED: oxyCODONE 5 MG/5 ML Cup PO ONE (23:15)
[2025-01-11 00:02] VITALS: BP 126/84; PULSE 88
== END 2025-01-10 23:46 | disposition left against medical advice (07) ==
LOC: CC.ED 19:45
DX: S82.831A Other fracture of upper and lower end of right fibula, initial encounter for closed fracture (principal); S46.911A Strain of unspecified muscle, fascia and tendon at shoulder and upper arm level, right arm, initial encounter; R74.8 Abnormal levels of other serum enzymes; E87.20 Acidosis, unspecified; R73.9 Hyperglycemia, unspecified; Z88.0 Allergy status to penicillin; Z88.5 Allergy status to narcotic agent; Z79.899 Other long term (current) drug therapy; Z79.51 Long term (current) use of inhaled steroids; Z79.4 Long term (current) use of insulin; V00.148A Other scooter (nonmotorized) accident, initial encounter; Y93.89 Activity, other specified
CPT/HCPCS: 36415; 70450; 71045; 71260; 72125; 72170; 73030-RT; 73562-RT; 74177; 80053; 80305-QW; 80307; 81001; 83605; 83735; 84484; 85025; 85730; 93005; 93010; 96361; 96374; 96375; 96376; 99284; 99284-25; A9270-GY; J1171; J2360; J2405; J7120; Q9967